=== PATIENT | female | born 1980 | race Caucasian/White ===

== ENCOUNTER 2019-10-29 13:23 | Emergency (ER) | payer MEDICAID ==
[~2019-10-29] VITALS: Ht 175.3 cm; Wt 96.9 kg
[~2019-10-29 13:23] MED LIST: DIVA125T2 PO; QUET100T4 PO; SUMA100T3 PO
--- NOTE | 2019-10-29 13:32 | NUR ---
[id number]
--- NOTE | 2019-10-29 13:56 | NUR ---
CREEL CLERK: DEMARCUS COLLECTED AND SENT TO LAB.
[2019-10-29 14:17] LABS: MICROSCOPIC AUTO
[2019-10-29 14:19] LABS: CULTURE INDICATED? YES
[2019-10-29 14:35] LABS: BASOPHILS # (AUTO) 0.03 x10^3/uL (0-0.1); BASOPHILS % (AUTO) 0 % (0-1); EOSINOPHILS # (AUTO) 0.11 x10^3/uL (0-0.4); EOSINOPHILS % (AUTO) 2 % (1-7); LYMPHOCYTES # (AUTO) 1.15 x10^3/uL (1-3.4); LYMPHOCYTES % (AUTO) 16 % (22-44); MD NO; MEAN CORPUSCULAR HGB CONC 33.1 g/dL (32.4-35.8); MEAN CORPUSCULAR VOLUME 93.8 fL (80-100); MEAN PLATELET VOLUME 8.8 fL (7.4-10.4); MONOCYTES # (AUTO) 0.23 x10^3/uL (0.2-0.8); MONOCYTES % (AUTO) 3 % (2-9); NEUTROPHILS # (AUTO) 5.77 x10^3/uL (1.8-6.8); NEUTROPHILS % (AUTO) 79 % (42-75); PLATELET COUNT 295 x10^3/uL (130-400); RED BLOOD COUNT 5.04 x10^6/uL (3.82-5.3); RED CELL DISTRIBUTION WIDTH 13.2 % (9.6-15.2)
[2019-10-29 14:46] LABS: ALBUMIN 3.2 g/dL (3.4-5.0); ANION GAP 7 mmol/L (5-15); CALCIUM 8.2 mg/dL (8.5-10.1); CHLORIDE 108 mmol/L (98-107)
[2019-10-29 14:53] LABS: ALANINE AMINOTRANSFERASE 25 U/L (12-78); ALKALINE PHOSPHATASE 62 U/L (45-117); BILIRUBIN,TOTAL 0.6 mg/dL (0.2-1.0); TOTAL PROTEIN 7.4 g/dL (6.4-8.2)
--- NOTE | 2019-10-29 15:33 | NUR ---
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
--- NOTE | 2019-10-29 16:30 | NUR ---
STEADY AMBULATION TO BATHROOM
[2019-10-29 17:04] VITALS: BP 124/74
--- NOTE | 2019-10-29 17:07 | NUR ---
ULTRA SOUND AT BEDSIDE
--- NOTE | 2019-10-29 17:54 | NUR ---
DISCHARGE INSTRUCTIONS REVIEWED
== END 2019-10-29 17:56 | disposition home or self-care (01) ==
LOC: ED 17:27
DX: N39.0 Urinary tract infection, site not specified (principal); Z72.0 Tobacco use
CPT/HCPCS: 36415; 76705; 80053; 81001; 83690; 84703; 85025; 87077; 87086; 87186; 93005; 99284

== ENCOUNTER 2020-01-17 14:53 | Emergency (ER) | payer MEDICAID ==
--- NOTE | 2020-01-17 15:48 | NUR ---
NA X 1
--- NOTE | 2020-01-17 16:06 | NUR ---
NA X 2
--- NOTE | 2020-01-17 16:06 | NUR ---
Loly cho in [facility] - 01/17/20 at 1607 by ETHAN LATE ENTRY FOR [id number] NA
--- NOTE | 2020-01-17 16:23 | NUR ---
NA X 3
== END 2020-01-17 16:25 | disposition left against medical advice (07) ==
LOC: ED 16:15
DX: M54.5 Low back pain (principal); Z53.21 Procedure and treatment not carried out due to patient leaving prior to being seen by health care provider

== ENCOUNTER 2020-08-05 15:53 | Emergency (ER) | payer MEDICAID ==
[~2020-08-05] VITALS: Ht 175.3 cm; Wt 100.4 kg
--- NOTE | 2020-08-05 16:05 | NUR ---
No answer in lobby when pt called for room.
--- NOTE | 2020-08-05 16:06 | NUR ---
Pt to room from lobby.
--- NOTE | 2020-08-05 16:15 | NUR ---
PROVIDER AT BS FOR EXAM. URINE SPECIMEN IN CONTAINER ON COUNTER. PT C/O RUQ PAIN X 3 DAYS. CONSTANT; WORSENS W/ SITTING. ADVIL LAST NOC FOR SAUL. LAST ORAL INTAKE: [employer], FOOD YESTERDAY MORNING. LAST BM: "1 WEEK AGO". LMP: 08/04/20 HX: UMBILICAL HERNIA, OVARIAN CYST, TUBAL, KIDNEY INFECTIONS, HEP C
--- NOTE | 2020-08-05 16:53 | NUR ---
PT REPORT TO TERESA SALAS RN. PT CARE TRANSFERRED.
[2020-08-05 17:04] LABS: BASOPHILS # (AUTO) 0.05 x10^3/uL (0-0.1); BASOPHILS % (AUTO) 1 % (0-1); EOSINOPHILS # (AUTO) 0.11 x10^3/uL (0-0.4); EOSINOPHILS % (AUTO) 1 % (1-7); LYMPHOCYTES # (AUTO) 2.01 x10^3/uL (1-3.4); LYMPHOCYTES % (AUTO) 22 % (22-44); MD NO; MEAN CORPUSCULAR HEMOGLOBIN 29.9 pg (27.0-34.8); MEAN CORPUSCULAR HGB CONC 32.6 g/dL (32.4-35.8); MEAN CORPUSCULAR VOLUME 91.6 fL (80-100); MEAN PLATELET VOLUME 8.4 fL (7.4-10.4); MONOCYTES # (AUTO) 0.49 x10^3/uL (0.2-0.8); MONOCYTES % (AUTO) 5 % (2-9); NEUTROPHILS # (AUTO) 6.35 x10^3/uL (1.8-6.8); NEUTROPHILS % (AUTO) 71 % (42-75); PLATELET COUNT 303 x10^3/uL (130-400); RED BLOOD COUNT 4.98 x10^6/uL (3.82-5.3); RED CELL DISTRIBUTION WIDTH 13.1 % (9.6-15.2)
[2020-08-05 17:04] LABS: MICROSCOPIC INDICATED
[2020-08-05 17:14] LABS: ALBUMIN 3.4 g/dL (3.4-5.0); ANION GAP 9 mmol/L (5-15); CALCIUM 8.8 mg/dL (8.5-10.1); CHLORIDE 108 mmol/L (98-107)
[2020-08-05 17:20] LABS: ALANINE AMINOTRANSFERASE 16 U/L (12-78); ALKALINE PHOSPHATASE 76 U/L (45-117); BILIRUBIN,TOTAL 0.8 mg/dL (0.2-1.0); CREATININE 1.06 mg/dL (0.55-1.02); TOTAL PROTEIN 7.7 g/dL (6.4-8.2)
[2020-08-05 17:55] VITALS: BP 133/83
--- NOTE | 2020-08-05 18:40 | NUR ---
PT DRESSED AND SITTING ON END OF [facility]
== END 2020-08-05 18:47 | disposition home or self-care (01) ==
LOC: ED 17:14
DX: K59.00 Constipation, unspecified (principal); N30.00 Acute cystitis without hematuria; R10.11 Right upper quadrant pain; G89.29 Other chronic pain; F17.200 Nicotine dependence, unspecified, uncomplicated; G40.909 Epilepsy, unspecified, not intractable, without status epilepticus; Z88.2 Allergy status to sulfonamides; Z88.8 Allergy status to other drugs, medicaments and biological substances; Z98.51 Tubal ligation status
CPT/HCPCS: 36415; 76700; 80053; 81001; 83690; 84703; 85025; 87086; 87186; 99284